=== PATIENT | female | born 1995 | race Caucasian/White ===

== ENCOUNTER 2016-10-29 22:29 | Emergency (ER) | payer BC ==
--- NOTE | 2016-11-04 20:54 | ER ---
ADMIT: 10/29/2016 RM/LOC: ER [facility] MR#: [id number] [address] [address] SOT[address]ER[address] [place] [address] Emergency Room Report SEX: F AGE: 21 : 1995 DATE: 10/29/2016 The patient is a 21-year-old female, who cut her left foot when she went through a broken floorboard of a [employer]. Exam remarkable for nontoxic, afebrile female with superficial lacerations in medial and lateral aspect of left heel. No foreign bodies noted. Wounds cleansed, irrigated, dressed with bacitracin and dressing. Advised to do the same at home. Medicated with Keflex 1 g p.o. in department, 500 mg q.i.d. x10 days. Follow up with Dr. Gamino as needed. Ed Graves MD/ pepe JOB #: [id number] CC: Ed Graves MD, Attending Physician Babs Gamino MD, Family Physician Babs Gamino MD
--- NOTE | 2016-11-08 07:20 | ER ---
ADMIT: 10/29/2016 RM/LOC: ER [facility] MR#: [id number] [address] [address] [place] [address] Emergency Room Report SEX: F AGE: 21 : 1995 DATE: 10/29/2016 DIAGNOSIS: Left ankle superficial lacerations. Ed Graves MD/ pepe JOB #: [id number] CC: Ed Graves MD, Attending Physician Babs Gamino MD, Family Physician
== END 2016-10-29 23:05 | disposition home or self-care (01) ==
LOC: ER 22:29
DX: S91.012A Laceration without foreign body, left ankle, initial encounter (principal); Z23 Encounter for immunization; W45.8XXA Other foreign body or object entering through skin, initial encounter